=== PATIENT | female | born 1985 | race Caucasian/White ===

== ENCOUNTER 2017-09-01 12:19 | Emergency (ER) | END 2017-09-01 16:40 | disposition home or self-care (01) ==

== ENCOUNTER 2018-04-01 19:33 | Emergency (ER) | END 2018-04-01 23:10 | disposition home or self-care (01) ==

== ENCOUNTER 2018-05-28 02:21 | Emergency (ER) | END 2018-05-28 06:23 | disposition home or self-care (01) ==